=== PATIENT | female | born 1990 | race Caucasian/White ===

== ENCOUNTER 2017-08-07 10:30 | Emergency (ER) | payer SELFPAY ==
[~2017-08-07] VITALS: Ht 154.9 cm; Wt 49.9 kg
--- NOTE | 2017-08-07 10:55 | NUR ---
PT IS IN ROOM #2B. DR DOMINGUEZ EVALUATED THE PT.
[2017-08-07] MEDS ORDERED: HYDROCODONE/APAP 5-325MG TABLET PO ONE (11:15)
[2017-08-07] MEDS ORDERED: ONDANSETRON ODT 4 MG TAB.RAPDIS SL ONE (11:30)
--- NOTE | 2017-08-07 11:30 | NUR ---
PT WAS D/C TO HOME. D/C INSTRUCTIONS GIVEN TO THE PT.
[2017-08-07 11:32] VITALS: BP 128/77
[2017-08-07] MEDS ORDERED: HYDROCODONE/APAP 5-325MG TABLET ONE (11:32)
[2017-08-07] MEDS ORDERED: ONDANSETRON ODT 4 MG TAB.RAPDIS ONE (11:41)
== END 2017-08-07 11:32 | disposition home or self-care (01) ==
LOC: ER 10:36
DX: N76.2 Acute vulvitis (principal); Z88.6 Allergy status to analgesic agent
CPT/HCPCS: 99283; A4663; Q0162